=== PATIENT | female | born 2005 | race Caucasian/White ===

== ENCOUNTER 2023-05-09 22:34 | Emergency (ER) | payer MEDICAID, SELFPAY ==
[2023-05-09 22:45] VITALS: BP 138/73; PULSE 113; RESP 18; TEMP 37.1; O2SAT 97
[2023-05-09 22:53] VITALS: BP 138/73; PULSE 113; RESP 18; TEMP 37.1; O2SAT 97
--- NOTE | 2023-05-09 22:53 | ED.GENADUL_ITS ---
Discharge Plan Disposition Patient Disposition: Home Condition: Good Discharge Details Clinical Impression: Nausea & vomiting Primary Care Provider: Unknown,Unknown ED Provider: Merlin Crawford Home Meds and New Rx's Prescriptions: No Action bupropion HCl 150 mg tablet extended release 24 hr 150 mg PO DAILY folic acid 1 mg tablet 1 mg PO DAILY norgestimate-ethinyl estradiol [Estarylla] 0.25-35 mg-mcg tablet 1 tab PO DAILY Discharge Instructions Instructions: Acute Nausea and Vomiting (ED) Additional Instructions: At this time your work-up is returned reassuring. 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 This is a condition where your bilirubin gets elevated during times of mild sickness. You will be sent home with Abhishek. Please take this as needed for nausea. Please avoid any spicy foods, greasy foods or tomato-based products. Please stick with a bland diet for the next 2 days and stay well-hydrated. If you notice any worsening of your symptoms, or any new symptoms such as vomiting, diarrhea, fever, chills, shortness of breath, chest pain, numbness, weakness, or fainting , please return immediately to the emergency department for reevaluation. Please follow up with your primary care provider as soon as possible for reassessment and reevaluation. As always, it was a pleasure participating in your medical care today. Stand Alone Forms: Work Release Medical Decision Making 18-year-old female with no reported significant past medical history except for occasional ovarian cyst presents today for nausea and vomiting. Patient states that since this morning she has felt nauseous and had a few episodes of vomiting. It is been yellow stomach bile for all of the episodes. There is a very tiny tinge of blood in the first episode early this morning but none since then. She denies any recent diarrhea. She denies any chest pain or significant abdominal pain. She denies any alcohol intake. No other sick contacts at home. She does take control, bupropion, and Ashwaganda Gummies. She denies previous abdominal surgeries. No other complaints at this time. No other modifying factors. She did take an [id number] antinausea Dramamine with no improvement. Exam demonstrates well-appearing female, nontender abdomen. No evidence of an acute surgical abdomen. Differential is highest for gastroenteritis, pancr eatitis. Symptoms appear inconsistent with obstruction. We will rehydrate, monitor closely and reassess. 12:32 AM Laboratory work-up has returned relatively unremarkable, lipase normal, no white count bandemia or electrolyte abnormality. Renal function normal. Total bilirubin elevated at 3.1, conjugated bilirubin only 0.4 suggesting an elevated unconjugated. This correlates with mild Simmons Bears syndrome. She does not show evidence of polycythemia, sepsis, or Crigler-Santiago syndrome. No evidence of significant CBC abnormality, , or splenomegaly on exam. Bedside limited ultrasound was performed, gallbladder normal in size, and gallbladder wall normal in thickness. Suspect mild viral gastroenteritis. On reassessment patient feels well, abdomen is notably nonsurgical and unremarkable. Patient feels well and has tolerated p.o. Patient stable for discharge. Will give Zofran for home use. Discussed red flags for which to return. I have extensively reviewed the treatment plan and discharge instructions with the patient. I have addressed all patient concerns at this time. The patient was made aware of what symptoms to monitor for that would warrant a return to the emergency department. Discussed the plan with the patient, they demonstrate verbal understanding and agreement with our assessment and plan at this time. The documentation in this chart was dictated using [employer] dictation software. Please excuse any dictation errors. HPI General Date/Time Provider Initiated Documentation: 05/09/23 22:38 . HPI Narrative: 18-year-old female with no reported significant past medical history except for occasional ovarian cyst presents today for nausea and vomiting. Patient states that since this morning she has felt nauseous and had a few episodes of vomiting. It is been yellow stomach bile for all of the episodes. There is a very tiny tinge of blood in the first episode early this morning but none since then. She denies any recent diarrhea. She denies any chest pain or significant abdominal pain. She denies any alcohol intake. No other sick contacts at home. She does take control, bupropion, and Ashwaganda Gummies. She denies previous abdominal surgeries. No other complaints at this time. No other modifying factors. She did take an [id number] antinausea Dramamine with no improvement. Related Data Home Medications Medication Instructions Recorded Confirmed bupropion HCl 150 mg 24 hr tablet, 150 mg PO DAILY 05/09/23 05/09/23 extended release folic acid 1 mg tablet 1 mg PO DAILY 05/09/23 05/09/23 norgestimate 0.25 mg-ethinyl 1 tab PO DAILY 05/09/23 05/09/23 estradiol 35 mcg tablet (Estarylla) Allergies Allergy/AdvReac Type Severity Reaction Status Date / Time seafood Allergy Severe Anaphylaxis Uncoded 05/09/23 22:57 General Stated Complaint: Nausea/Vomit/Diar NATTY: 3 Review of Systems All systems reviewed & are unremarkable except as noted in HPI and below PFSH All Active Problems (Updated 05/10/23 @ 00:25 by Merlin Crawford DO) Nausea & vomiting (Acute) Social History Smoking/Tobacco Use Status: Current every day Tobacco Type: e-cigarettes Smoking risk assessment performed?: Yes Alcohol Intake: current Alcohol Intake frequency: holidays/special occasions only Alcohol type: hard liquor Drug use: Never Substance use type: does not use Housing: house Do you feel safe at home: Yes Do you feel safe in your relationship?: Yes Additional Social history: unable to assess privately Exam Narrative Exam Narrative: 1.Const: Well-nourished, Well-developed, appearing stated age 2.Eyes: PERRL, no conjunctival injection, and symmetrical lids. 3.ENT: Atraumatic external nose and ears. Dry MM. Neck: Symmetric, trachea midline, No thyromegaly. 4.CVS: +S1/S2, No murmurs or gallops. Peripheral pulses 2+ and equal in all extremities. Brisk capillary refill in all extremities. 5.RESP: Unlabored respiratory effort. Clear to auscultation bilaterally. No wheezes rales or rhonchi 6.GI: Soft, Nontender/Nondistended, No hepatosplenomegaly. No guarding or rebound. No pain at McBurney's point, negative Cárdenas sign 7.MSK: Normocephalic/Atraumatic, Extremities w/o deformity or ttp No cyanosis or clubbing, Normal movement of all extremities 8.Skin: Warm, Dry. No rashes or lesions. 9.Neuro: event marketing representative II-XII grossly intact. Sensation grossly intact, no focal neurologic deficits. 10.Psych: (AAO) x3. Appropriate mood and affect Course Vital Signs Vital signs: Vital Signs Temperature 37.1 C 05/09/23 22:45 Pulse 113 H 05/09/23 22:45 Respiratory Rate 18 05/09/23 22:45 Blood Pressure 138/73 05/09/23 22:45 Pulse Oximetry 97 05/09/23 22:45 Temperature 37.1 C 05/09/23 22:45 Temperature Source Temporal Artery Scan 05/09/23 22:45 Pulse 113 H 05/09/23 22:45 Respiratory Rate 18 05/09/23 22:45 Respiratory Effort Normal, Non-Labored 05/09/23 22:52 Blood Pressure 138/73 05/09/23 22:45 Blood Pressure Position Sitting 05/09/23 22:45 Pulse Oximetry 97 05/09/23 22:45 Oxygen Delivery Method Room Air 05/09/23 22:45 Oxygen Flow Rate 0 05/09/23 22:45 Pain Level 6 05/09/23 22:45 POCUS Exam (ED) Limited Gallbladder Exam DATE OF EXAM: 05/10/23 TIME OF EXAM: 00:09 PROVIDER THAT PERFORMED THE STUDY: Merlin Crawford IS THIS A REPEAT EXAM DURING THIS ENCOUNTER: No REASON FOR VISIT: Abdominal pain VISUALIZED STRUCTURES: Gallbladder and Gallbladder wall PERTINENT FINDINGS/IMPRESSION: Gallstones and Sludge in gallbladder; No Cholecystitis, No Pericholecystic fluid and No thickening of the gallbladder wall INCIDENTAL FINDINGS: Gallbladder diameter on short axis was less than 2 cm, and gallbladder wall was less than 2 mm in thickness Exam complete PAWSS Have you Been Recently Intoxicated or Drunk Within the Last 30 days?: No Have you Ever Experienced Previous Episodes of Alcohol Withdrawal?: No Have you ever Experienced Withdrawal Seizures?: No Have you ever Experienced Delirium Tremens(DT)s?: No Have you ever undergone Alcohol Rehabilitation Treatment (i.e, inpt ot outpatient treatment programs)?: No Have you ever Experienced Blackouts?: No Have you ever Combined Alcohol with other Downers within the last 90 days?: No Have you ever Combined Alcohol with any other Substance of Abuse during the last 90 days?: No Positive Blood Alcohol level on Presentation? [PCS.BAL]: No Evidence of Increased Autonomic Activity (i.e. HR>120, tremor, sweating, agitation, nausea)?: No Result: 0
[2023-05-09 23:16] LABS: Abs Immature Grans 0.03 10^3/uL (0.0-0.06); Absolute Basophil Count 0.02 10^3/uL (0.0-0.2); Absolute Eosinophil Count 0.01 10^3/uL (0.0-0.7); Absolute Lymphocyte Count 0.59 10^3/uL (1.2-3.4); Absolute Monocyte Count 0.56 10^3/uL (0.1-0.8); Absolute Neutrophil Count 9.25 10^3/uL (1.2-6.7); Basophils % 0.2; Eosinophils % 0.1; HCT 38.3 % (36.0-46.0); HGB 13.5 g/dL (11.2-15.7); Immature Grans % 0.3; Lymphocytes % 5.6; MCH 30.7 pg (27.0-33.0); MCHC 35.2 % (32.0-36.0); MCV 87 fL (80-95); MPV 10.1 fL (8.0-11.0); Monocytes % 5.4; Neutrophils % 88.4; Platelet Count 277 10^3/uL (130-400); RDW 12.3 % (11.7-14.6); RDW-SD 39.5 fL; WBC 10.46 10^3/uL (4.4-10.8)
[2023-05-09] MEDS: Normal Saline 1,000 ML 1000 ML IV (23:17)
[2023-05-09] MEDS: Ondansetron 4 MG/2 ML VIAL IVP (23:17)
[2023-05-09 23:18] LABS: Bilirubin Small (Negative); Blood Negative (Negative); Clarity Clear (Clear); Glucose Negative (Negative); Ketones 40 mg/dL (Negative); Leukocyte Esterase Negative (Negative); Nitrite Negative (Negative); Specific Gravity 1.025 (1.005-1.025)
[2023-05-09 23:27] LABS: Bacteria Moderate HPF (Negative); C & S Indicated? No/Sq. Contamination; Casts Negative LPF (Negative); Crystals Negative HPF (Negative); Epithelial Cells Moderate HPF (Negative); Mucus Heavy (Negative); RBC 0-2 HPF (0-2); WBC 0-2 HPF (0-5)
[2023-05-09 23:36] LABS: ALT 37 U/L (14-59); AST 22 U/L (15-37); Albumin 4.1 g/dL (3.4-5.0); Alkaline Phosphatase 64 U/L (46-116); BUN 9 mg/dL (7-18); Bilirubin, Total 3.1 mg/dL (0.2-1.0); CREATININE 0.9 mg/dL (0.55-1.02); Calcium 9.4 mg/dL (8.5-10.1); Chloride 105 mmol/L (98-107); Estimated GFR 93.86 (mL/min/1.73m2); Glucose 102 mg/dL (74-106); Lipase 19 U/L (16-77); Potassium 3.8 mmol/L (3.5-5.1); Sodium 139 mmol/L (136-145)
[2023-05-10 00:18] LABS: Bilirubin, Direct 0.4 mg/dL (0.0-0.2)
[2023-05-10 00:35] VITALS: BP 116/53; PULSE 82; RESP 16; O2SAT 98
== END 2023-05-10 00:36 | disposition home or self-care (01) ==
PROVIDERS: Emergency Provider Student in an Organized Health Care Education/Training Program
DX: R11.2 Nausea with vomiting, unspecified (principal); F17.290 Nicotine dependence, other tobacco product, uncomplicated
CPT/HCPCS: 36415; 76705; 80053; 81025; 83690; 96361; 96374; 99284; 81003; 81015; 82248; 85025; 99283; J2405

== ENCOUNTER 2023-06-18 21:18 | Emergency (ER) | payer MEDICAID, SELFPAY ==
--- NOTE | 2023-06-18 21:15 | RT.EKG_ITS ---
APPROVED REPORT Exam: Resting ECG Reason for Exam: chest pressure Patient Location: E HR:77 bpm ECG Measurements Heart Rate 77 AXIS SD 142 P 26 QRSd 93 QRS 64 QT 374 T 12 QTc 423 Conclusion Sinus rhythm...normal P axis, V-rate 60- 99 sinus rhythm, normal axis, normal intervals, non ischemic
[2023-06-18 21:27] VITALS: BP 149/94; PULSE 78; RESP 20; TEMP 36.5; O2SAT 99
--- NOTE | 2023-06-18 21:45 | DI.CT_ITS ---
Exam(s) CT ABDOMEN PELVIS W EXAM: CT ABDOMEN PELVIS W CLINICAL HISTORY: Abdominal pain, nausea. TECHNIQUE: Imaging Protocol: Axial computed tomography images with coronal and sagittal reformatted images were created and reviewed CONTRAST MATERIAL: Intravenous: Omnipaque-350 100cc Oral: None COMPARISON: No exams were available for comparison FINDINGS: VISUALIZED LUNG BASES: No nodules nor pleural effusions evident. ABDOMEN: There is no ascites. LIVER: There are no focal hepatic lesions evident. There is mild periportal edema in the liver. No dilated intrahepatic ducts. GALLBLADDER/BILIARY: Cholelithiasis noted. No gallbladder wall edema nor pericholecystic fluid. CBD is not dilated. PANCREAS: No evidence of pancreatic mass nor dilatation of the pancreatic duct. SPLEEN: Spleen is not enlarged. No obvious intrasplenic lesions. Splenic and portal veins are paten t. ADRENALS: There are no significant adrenal masses. KIDNEYS:No cysts evident. No solid renal masses. No calculi nor hydronephrosis.. ABDOMINAL AORTA: Abdominal aorta is not enlarged. LYMPH NODES:There is no retroperitoneal nor paraaortic adenopathy. ABDOMINAL WALL: No evidence of significant anterior abdominal wall nor inguinal hernia. GI: There is no evidence of bowel obstruction, free air, nor abscess. PELVIS: GI: Appendix is difficult to visualize as a distinct structure. There is, however, no evidence of ob vious appendicitis.No evidence of sigmoid diverticulitis. LYMPH NODES: There is no intrapelvic nor inguinal adenopathy. REPRODUCTIVE: Age-appropriate uterus and adnexal regions. URINARY BLADDER: No calculi nor obvious masses evident OSSEOUS: No fractures and no significant osseous lesions. IMPRESSION: 1. Appendix is not seen is a separate structure but there is no evidence of obvious acute appendiciti s. 2. No adnexal findings nor free fluid. 3. There is mild periportal edema in the liver noted. 4. No ascites. RADIATION DOSE DELIVERED: Total DLP DATA REPOSITORY: All CT scans at this facility are submitted to the National Radiology Data Registry (NRDR) Dose Index Registry (DIR) with the [employer] (ACR). RADIATION OPTIMIZATION: All CT scans at this facility use at least one of these dose optimization te chniques: automated exposure control; mA and/or kV adjustment per patient size (includes targeted exa ms where dose is matched to clinical indication); or iterative reconstruction.
--- NOTE | 2023-06-18 21:53 | ED.GENADUL_ITS ---
Discharge Plan Disposition Patient Disposition: Home Condition: Stable Discharge Details Clinical Impression: Gallstones Primary Care Provider: [facility] Provider: Emy Handy Home Meds and New Rx's Prescriptions: No Action bupropion HCl 150 mg tablet extended release 24 hr 150 mg PO DAILY folic acid 1 mg tablet 1 mg PO DAILY norgestimate-ethinyl estradiol [Estarylla] 0.25-35 mg-mcg tablet 1 tab PO DAILY Discharge Instructions Instructions: Biliary Colic (ED), Gallstones (ED) Additional Instructions: CT shows US gall stones. This may cause the symptoms you are having. Please stay away from anything fried fatty spicy or dairy. Please take the nausea medication as needed. Please take Tylenol or Ibuprofen with food every 4-6 hours as needed for pain and swelling. Follow up with primary care provider in 3-5 days. Return to ED sooner if any worsening fever, vomiting worsening pain not relieved by Tylenol or ibuprofen or concerns. Increase oral fluids. He may also follow-up with general surgery in the future to discuss whether this needs intervention. Referrals: Chika Thomas DO [OSTEOPATHIC DOCTOR] - 2 weeks Discharge Data Discharge Date/Time-TO BE ENTERED AT DEPARTURE: 06/18/23 23:49 Medical Decision Making 18-year-old female to the ER with chief complaint chest pressure which began while she was at a alliance party. She denies any drugs or alcohol, she does endorse so me marijuana exposure. She has had viral-like symptoms for the last week. She reports waxing and waning pain that comes and goes. Generalized abdominal tenderness with palpation. Worse in the right upper quadrant. Lungs are clear to auscultation bilaterally. No signs of trauma denies any dysuria or problems urinating. She is not on control pills. Last normal menstrual period was approximately 1 month ago denies any known . No vaginal bleeding or discharge. She is belching upon my examination. She reports that maybe it was gas. She reports that a similar episode approximately 1 week ago. Workup ordered including CBC CMP, lipase, urinalysis UDS urine and a liter of normal saline and Zofran 4 mg. Differential diagnosis includes but not limited to gastroenteritis, gas, food poisoning, COVID, cholecystitis, Please see official CT report shows gallstones, no free fluid, there is some portal venous dilatation which patient has received IV fluids. UDS negative, labs are noted below. Patient discharged with Zofran tablets to go, referral for general surgery and strict return instructions if continued pain. This text was generated using [employer] dictation system, please disregard any oddities of phrase or misspellings. Patient reevaluation she reports that she feels much better she has remained hemodynamically stable throughout the remainder of her stay Lab Data Lab results reviewed: Yes I reviewed the patient's lab results. Labs: Laboratory Tests Range/Units 06/18/23 22:16 WBC (4.4-10.8) 10^3/uL 9.92 RBC (3.93-5.22) 10^6/uL 5.03 Hgb (11.2-15.7) g/dL 15.7 Hct (36.0-46.0) % 45.0 MCV (80-95) fL 90 MCH (27.0-33.0) pg 31.2 MCHC (32.0-36.0) % 34.9 RDW (11.7-14.6) % 12.1 Plt Count (130-400) 10^3/uL 257 MPV (8.0-11.0) fL 10.3 Immature Gran % 0.2 Neutrophils % 73.5 Lymphocytes % 17.4 Monocytes % 6.4 Eosinophils % 2.2 Basophils % 0.3 Nucleated RBC % (0.0-0.3) % 0.0 Absolute Neutrophils (1.2-6.7) 10^3/uL 7.29 H Absolute Lymphocytes (1.2-3.4) 10^3/uL 1.73 Absolute Monocytes (0.1-0.8) 10^3/uL 0.63 Absolute Eosinophils (0.0-0.7) 10^3/uL 0.22 Absolute Basophils (0.0-0.2) 10^3/uL 0.03 Sodium (136-145) mmol/L 140 Potassium (3.5-5.1) mmol/L 3.7 Chloride (98-107) mmol/L 103 Carbon Dioxide (21.0-32.0) mmol/L 26.6 Anion Gap (3-11) mmol/L 10.4 BUN (7-18) mg/dL 11 Creatinine (0.55-1.02) mg/dL 0.9 Est GFR (CKD-EPI 2020) (mL/min/1.73m2) 93.86 Glucose (74-106) mg/dL 97 Calcium (8.5-10.1) mg/dL 9.3 Total Bilirubin (0.2-1.0) mg/dL 1.3 H AST (15-37) U/L 57 H ALT (14-59) U/L 40 Alkaline Phosphatase (46-116) U/L 71 Total Protein (6.4-8.2) g/dL 8.6 H Albumin (3.4-5.0) g/dL 4.1 Lipase (16-77) U/L 44 Urine Color (Yellow) Yellow Urine Clarity (Clear) Clear Urine pH (5-8) 6.5 Ur Specific [place] (1.005-1.025) >= 1.030 H Urine Protein (Negative) mg/dL Negative Urine Ketones (Negative) mg/dL 15 H Urine Blood (Negative) Negative Urine Nitrite (Negative) Negative Urine Bilirubin (Negative) Negative Urine Urobilinogen (Up to 0.2) mg/dL 0.2 Ur Leukocyte Esterase (Negative) Negative Urine Glucose (Negative) mg/dL Negative Urine Opiates Screen (Negative) Negative Urine Methadone Screen (Negative) Negative Ur Barbiturates Screen (Negative) Negative Ur Tricyclics Screen (Negative) Negative Ur Amphetamines Screen (Negative) Negative U Benzodiazepines Scrn (Negative) Negative Urine Cocaine Screen (Negative) Negative Ur THC Screen (Negative) Negative COVID-19 Source Nasopharynx SARS-CoV-2 (PCR) (Negative) Negative Influenza Type A (PCR) (Negative) Negative Influenza Type B (PCR) (Negative) Negative RSV (PCR) (Negative) Negative HPI General Mode of arrival: ambulatory . Date/Time Provider Initiated Documentation: 06/18/23 21:28 . Limitations to Documentation: no limitations . Information obtained by: patient, RN notes reviewed and old records reviewed . HPI Narrative: 18-year-old female to the ER with chief complaint chest pressure which began while she was at a alliance party. She denies any drugs or alcohol, she does endorse some marijuana exposure. She has had viral-like symptoms for the last week. She reports waxing and waning pain that comes and goes. Generalized abdominal tenderness with palpation. Worse in the right upper quadrant. Lungs are clear to auscultation bilaterally. No signs of trauma denies any dysuria or problems urinating. She is not on control pills. Last normal menstrual period was approximately 1 month ago denies any known . No vaginal bleeding or discharge. She is belching upon my examination. She reports that maybe it was gas. She reports that a similar episode approximately 1 week ago. Related Data Home Medications Medication Instructions Recorded Confirmed bupropion HCl 150 mg 24 hr tablet, 150 mg PO DAILY 05/09/23 06/18/23 extended release folic acid 1 mg tablet 1 mg PO DAILY 05/09/23 06/18/23 norgestimate 0.25 mg-ethinyl 1 tab PO DAILY 05/09/23 06/18/23 estradiol 35 mcg tablet (Estarylla) Allergies Allergy/AdvReac Type Severity Reaction Status Date / Time seafood Allergy Severe Anaphylaxis Uncoded 06/18/23 21:26 General Stated Complaint: GenMedical NATTY: 3 Review of Systems All systems reviewed & are unremarkable except as noted in HPI and below Constitutional Constitutional: Reports as per HPI, Denies fever(s) and Denies headache(s) ENT Ears, Nose, Mouth, and Throat: Denies headache(s) Gastrointestinal Gastrointestinal: Reports abdominal pain, Reports belching, Denies hematochezia, Denies coffee ground emesis, Denies diarrhea, Reports nausea and Denies vomiting Genitourinary Genitourinary: Denies dysuria Neurologic Neurologic: Denies headache(s) PFSH All Active Problems (Updated 06/18/23 @ 23:39 by Emy Handy NP) Gallstones (Acute) Social History Smoking/Tobacco Use Status: Current every day Tobacco Type: e-cigarettes Smoking risk assessment performed?: Yes Alcohol Intake: current Alcohol Intake frequency: holidays/special occasions only Alcohol type: hard liquor Drug use: Never Substance use type: does not use Housing: house Do you feel safe at home: Yes Do you feel safe in your relationship?: Yes Additional Social history: unable to assess privately Exam Narrative Exam Narrative: Constitutional: Alert and oriented x3. Appears stated age. Normal body habitus. Head: Normocephalic, no trauma. Eyes: Pupils PERRL, Red reflex noted, EOM's intact. Eyelids symmetrical without lesions, discharge, or swelling. ENT: Bilateral TM's WNL, External ear normal to inspection, no mastoid TTP, swelling, or erythema, Nasal turbinates WNL, no nasal discharge. Normal dentition, Posterior pharynx WNL, no exudate. Chest: RRR, Normal S1, S2, distal pulses intact. Resp: Lungs clear to auscultation bilaterally, no wheezes, rales, or rhonchi. Abdomen: Soft, non-distended, Normoactive bowel sounds all 4 quads. Tenderness all 4 quadrants, worse right upper quadrant. no masses guarding Musculoskeletal: Normal gait, 5/5 strength to all four extremities. Skin: No suspicious rashes or lesions. Capillary refill less than 2 sec. Neurologic: Cranial nerves II-XII intact. Alert and oriented x 3. Motor: No deficits noted. Sensory: Intact bilaterally all 4 extremities. Hematologic/Lymphatic: No ecchymosis, no lymphadenopathy. Course Vital Signs Vital signs: Vital Signs Temperature 36.5 C 06/18/23 21: Pulse 78 06/18/23 21:27 Respiratory Rate 20 06/18/23 21:27 Blood Pressure 149/94 H 06/18/23 21:27 Pulse Oximetry 99 06/18/23 21:27 Temperature 36.5 C 06/18/23 21:27 Temperature Source Oral 06/18/23 21:27 Pulse 78 06/18/23 21:27 Respiratory Rate 20 06/18/23 21:27 Respiratory Effort Normal 06/18/23 21:38 Respiratory Depth Normal 06/18/23 21:38 Respiratory Pattern Normal 06/18/23 21:38 Blood Pressure 149/94 H 06/18/23 21:27 Blood Pressure Position Sitting 06/18/23 21:27 Pulse Oximetry 99 06/18/23 21:27 Oxygen Delivery Method Room Air 06/18/23 21:27 Oxygen Flow Rate 0 06/18/23 21:27 Pain Level 10 06/18/23 21:27
[2023-06-18] MEDS: Normal Saline 1,000 ML 1000 ML IV (22:20)
[2023-06-18] MEDS: Ondansetron 4 MG/2 ML VIAL IVP (22:21)
[2023-06-18 22:23] LABS: Abs Immature Grans 0.02 10^3/uL (0.0-0.06); Absolute Basophil Count 0.03 10^3/uL (0.0-0.2); Absolute Eosinophil Count 0.22 10^3/uL (0.0-0.7); Absolute Lymphocyte Count 1.73 10^3/uL (1.2-3.4); Absolute Monocyte Count 0.63 10^3/uL (0.1-0.8); Absolute Neutrophil Count 7.29 10^3/uL (1.2-6.7); Basophils % 0.3; Eosinophils % 2.2; HGB 15.7 g/dL (11.2-15.7); Immature Grans % 0.2; Lymphocytes % 17.4; MCH 31.2 pg (27.0-33.0); MCHC 34.9 % (32.0-36.0); MCV 90 fL (80-95); MPV 10.3 fL (8.0-11.0); Monocytes % 6.4; Neutrophils % 73.5; Platelet Count 257 10^3/uL (130-400); RBC 5.03 10^6/uL (3.93-5.22); RDW 12.1 % (11.7-14.6); RDW-SD 40.5 fL; WBC 9.92 10^3/uL (4.4-10.8)
[2023-06-18 22:27] LABS: Bilirubin Negative (Negative); Blood Negative (Negative); Clarity Clear (Clear); Glucose Negative (Negative); Ketones 15 mg/dL (Negative); Leukocyte Esterase Negative (Negative); Nitrite Negative (Negative); Specific Gravity >= 1.030 (1.005-1.025); Urobilinogen 0.2 mg/dL (Up to 0.2); pH 6.5 (5-8)
[2023-06-18] MEDS: Omnipaque 350 MG/ML 100 ML BTL IJ (22:31)
[2023-06-18 22:44] LABS: ALT 40 U/L (14-59); AST 57 U/L (15-37); Albumin 4.1 g/dL (3.4-5.0); Alkaline Phosphatase 71 U/L (46-116); Anion Gap 10.4 mmol/L (3-11); BUN 11 mg/dL (7-18); Bilirubin, Total 1.3 mg/dL (0.2-1.0); CO2 26.6 mmol/L (21.0-32.0); CREATININE 0.9 mg/dL (0.55-1.02); Calcium 9.3 mg/dL (8.5-10.1); Chloride 103 mmol/L (98-107); Estimated GFR 93.86 (mL/min/1.73m2); Glucose 97 mg/dL (74-106); Lipase 44 U/L (16-77); Potassium 3.7 mmol/L (3.5-5.1); Sodium 140 mmol/L (136-145); Total Protein 8.6 g/dL (6.4-8.2)
[2023-06-18 22:45] LABS: *AMPHETAMINES SCREEN URINE Negative (Negative); *BARBITURATES SCREEN URINE Negative (Negative); *BENZODIAZEPINES SCREEN URINE Negative (Negative); Cannabinoids THC Negative (Negative); Cocaine Screen,Urine Negative (Negative); METHADONE URINE SCREEN Negative (Negative); OPIATES URINE SCREEN Negative (Negative)
[2023-06-18] MEDS: Normal Saline - Diluent 50 ML VIAL IJ (22:46)
[2023-06-18] MEDS: Normal Saline Flush 10 ML SYR IVP (22:47)
[2023-06-18 22:49] LABS: Tricyclic Antidepressants Negative (Negative)
[2023-06-18 23:00] LABS: COVID-19 PCR Negative (Negative); Influenza A PCR Negative (Negative); Influenza B PCR Negative (Negative); RSV PCR Negative (Negative)
[2023-06-18 23:01] LABS: Source Nasopharynx
--- NOTE | 2023-06-18 23:22 | DI.VRAD_ITS ---
PROCEDURE INFORMATION: Exam: CT Abdomen And Pelvis With Contrast Exam date and time: 06/18/2023 10:33 PM Age: 18 years old Clinical indication: Abdominal pain; Localized; Left upper quadrant (luq); Patient HX: Abd pain, nausea TECHNIQUE: Imaging protocol: Computed tomography of the abdomen and pelvis with contrast. Radiation optimization: All CT scans at this facility use at least one of these dose optimization techniques: automated exposure control; mA and/or kV adjustment per patient size (includes targeted exams where dose is matched to clinical indication); or iterative reconstruction. Contrast material: OMNIPAQUE 350; Contrast volume: 100 ml; Contrast route: INTRAVENOUS (IV); COMPARISON: No relevant prior studies available. FINDINGS: Liver: See Vasculature finding. Gallbladder and bile ducts: Cholelithiasis. No cholecystitis or biliary ductal dilatation. Pancreas: Unremarkable. Spleen: Normal. Adrenal glands: Normal. No mass. Kidneys and ureters: Normal. No hydronephrosis. Stomach and bowel: Unremarkable. No bowel wall thickening or intestinal obstruction. Appendix: Normal appendix. Intraperitoneal space: Unremarkable. No pneumoperitoneum. No abscess. Vasculature: There is mild periportal edema and IVC distention which is likely related to IV fluid administration or pre hydration for CT scan though a can also be a nonspecific indicator of hepatic dysfunction/hepatitis. Lymph nodes: Unremarkable. Urinary bladder: Unremarkable as visualized. Reproductive: Unremarkable as visualized. Bones/joints: Unremarkable. No acute fracture. Soft tissues: Unremarkable. IMPRESSION: There is mild periportal edema and IVC distention which is likely related to IV fluid administration or pre hydration for CT scan though a can also be a nonspecific indicator of hepatic dysfunction/hepatitis. Dictated and Authenticated by: Farshad Servin MD. Ordering:ROOSEVELT Quevedo MD
[2023-06-18] MEDS: Ondansetron O.D.T. 4 MG TABEF, 3 TABS/BTL PO (23:47)
[2023-06-18 23:48] VITALS: BP 140/54; PULSE 83; RESP 16; O2SAT 100
--- NOTE | 2023-06-19 07:49 | NUR.NOTE ---
Accessed chart to determine orders for EKG and to determine whether or not one needs to be cancelled. Nursing Note:
== END 2023-06-18 23:49 | disposition home or self-care (01) ==
PROVIDERS: Emergency Provider Registered Nurse Emergency
DX: K80.20 Calculus of gallbladder without cholecystitis without obstruction (principal); R10.11 Right upper quadrant pain
CPT/HCPCS: 80053; 80307; 83690; 87637; 93005; 74177; 81003; 85025; 93010; J2405; J3490

== ENCOUNTER 2023-12-19 11:17 | Emergency (ER) | payer SELFPAY ==
[2023-12-19 11:21] VITALS: BP 117/71; PULSE 74; RESP 16; TEMP 36.9; O2SAT 100
--- NOTE | 2023-12-19 11:27 | W.ED.GENAD ---
Discharge Plan Disposition Patient Disposition: Home Condition: Stable Discharge Details Clinical Impression: Fungal infection of skin Primary Care Provider: Unknown,Unknown ED Provider: Merlin Dominguez Home Meds and New Rx's Prescriptions: New butenafine 1 % cream 1 applic topical BID 28 Days Qty: 30 0RF Continued bupropion HCl 150 mg tablet extended release 24 hr 150 mg PO DAILY folic acid 1 mg tablet 1 mg PO DAILY norgestimate-ethinyl estradiol [Estarylla] 0.25-35 mg-mcg tablet 1 tab PO DAILY Discharge Instructions Instructions: Butenafine, Fungal Skin Rash Additional Instructions: You were seen in the emergency department for your fungal skin infection of your left shoulder blade consistent with ringworm. You have been applying Benadryl cream to this, this is not going to treat a fungal infection. I have sent prescription butenafine to [facility] in [place]. Please apply this twice per day as directed. If this is not curative likely fungal skin infection you need to follow-up with dermatology for nonhealing skin ulceration. Please return to the emergency department for any spread of the infection, spreading redness out from the area of crusting, drainage of pus from the area, fever. HPI General Date/Time Provider Initiated Documentation: 12/19/23 11:26. HPI Narrative: 18 year-old female presents to ED today by POV/ambulating with a chief complaint of rash on L shoulderblade with onset for one week- similar to a prior episode of ringworm years ago. Quality described as scaly, itchy rash, no radiation to fever, drainage of pus from the area, spread urticaria. Severity is described as mild. Palliating factors include nothing specific. Provoking factors include nothing specific. Events leading up to the incident/Associated Symptoms: patient has put Benadryl on the rash, knowing that it won't treat fungal infection, states she cannot afford OTC antifungal. Patient not anticoagulated. Related Data Home Medications Medication Instructions Recorded Confirmed bupropion HCl 150 mg 24 hr tablet, 150 mg PO DAILY 05/09/23 12/19/23 extended release folic acid 1 mg tablet 1 mg PO DAILY 05/09/23 12/19/23 norgestimate 0.25 mg-ethinyl 1 tab PO DAILY 05/09/23 12/19/23 estradiol 35 mcg tablet (Estarylla) butenafine 1 % topical cream 1 applic topical BID ringworm 4 12/19/23 weeks #30 grams Previous Rx's Medication Instructions Recorded butenafine 1 % topical cream 1 applic topical BID ringworm 4 12/19/23 weeks #30 grams Allergies Allergy/AdvReac Type Severity Reaction Status Date / Time seafood Allergy Severe Anaphylaxis Uncoded 12/19/23 11:49 General Stated Complaint: RashLesion NATTY: 5 Review of Systems All systems reviewed & are unremarkable except as noted in HPI and below Exam Narrative Exam Narrative: GENERAL APPEARANCE: Well-nourished, non-toxic, awake and alert, atraumatic, no acute distress. SKIN: Warm, pink, dry, intact, macular scaly rash about 1.5 cm at the left trapezius area with a red ring around the outside, no white plaques, no drainage of pus, no fluctuance or spivey induration or spreading erythema consistent with ringworm HEAD: Normocephalic, atraumatic, normal hair distribution for gender/age. EYES: Normal conjunctiva, no exudates on lids/lashes. ENT: Nares patent, no circumoral cyanosis, no facial swelling NECK: Supple, trachea midline, painless cervical ROM. LUNGS/CHEST: Non-labored respirations, normal A/P diameter, symmetrical expansion, no chest wall deformity HEART (CV/PV): No peripheral edema, no JVD. ABDOMEN: Soft, non-distended, no guarding. MSK: Normal ROM, no swelling/deformity to bilateral UEs or LEs, moving all extremities without weakness, no cyanosis, spine midline without tenderness, normal curvature. NEURO: Mental Status AAOx4 - alert to person, place, time, events No facial droop, no forehead involvement. Motor: No focal weakness - strength 5/5 in bilateral UEs and LEs, proximal and distal, symmetric. Sensory: sensation intact to light touch globally. Gait normal: patient ambulated without ataxia into ED room. PSYCH: euthymic, cooperative, pleasant, appropriate speech Course Vital Signs Vital signs: Vital Signs Temperature 36.9 C 12/19/23 11:21 Pulse 74 12/19/23 11:21 Respiratory Rate 16 12/19/23 11:21 Blood Pressure 117/71 12/19/23 11:21 Pulse Oximetry 100 12/19/23 11:21 Temperature 36.9 C 12/19/23 11:21 Temperature Source Tympanic 12/19/23 11:21 Pulse 74 12/19/23 11:21 Respiratory Rate 16 12/19/23 11:21 Blood Pressure 117/71 12/19/23 11:21 Blood Pressure Position Sitting 12/19/23 11:21 Pulse Oximetry 100 12/19/23 11:21 Oxygen Delivery Method Room Air 12/19/23 11:21 Oxygen Flow Rate 0 12/19/23 11:21 Pain Level 0 12/19/23 11:21 Medical Decision Making This dictation utilizes [id number] dictation software and may contain unedited grammatical errors. 18 year-old female presents to ED today by POV/ambulating with a chief complaint of rash on L shoulderblade with onset for one week- similar to a prior episode of ringworm years ago. Quality described as scaly, itchy rash, no radiation to fever, drainage of pus from the area, spread urticaria. Severity is described as mild. Palliating factors include nothing specific. Provoking factors include nothing specific. Events leading up to the incident/Associated Symptoms: patient has put Benadryl on the rash, knowing that it won't treat fungal infection, states she cannot afford OTC antifungal. Patients' medical history: noncontributory. Family and social history: noncontributory. Pertinent exam findings / vital signs include SKIN: Warm, pink, dry, intact, macular scaly rash about 1.5 cm at the left trapezius area with a red ring around the outside, no white plaques, no drainage of pus, no fluctuance or spivey induration or spreading erythema consistent with ringworm. Differential / pathologies of concern include ringworm, psoriasis, atypical squamous cell carcinoma. Diagnostic studies of: -none. Interventions of: -Rx for Butenafine for antifungal treatment. ED Course/Assessment/Plan: Patient presents with a 1.5 cm rash macular to the left trapezius area of the shoulder blade consistent with ringworm, not consistent with white plaques of psoriasis, counseled on treatment with antifungal cream, patient and I discussed the need for urgent care visits or primary care visits for complaints such as this, states she cannot afford [id number] medications so I did provide prescription. Recommend she see a heel nail rasper for failure to improve for further evaluation and possible biopsy, strict return criteria for spivey increase in swelling, pain, fever, redness spreading up from the area, drainage of pus from the area. Findings not consistent with abscess, sepsis, carcinoma. Disposition of fungal infection of skin. Patient verbalized understanding of the plan and return to ED criteria and engaged in shared decision making. Medical Records Medical records reviewed: Yes I reviewed the patient's medical records. Quality:[facility] Health Related Social Needs: No Data to Display PFSH All Active Problems (Updated 12/19/23 @ 11:52 by MARCELA Dey) Fungal infection of skin (Acute) Social History Smoking/Tobacco Use Status: Current every day Tobacco Type: e-cigarettes Smoking risk assessment performed?: Yes Alcohol Intake: current Alcohol Intake frequency: holidays/special occasions only Alcohol type: hard liquor Drug use: Never Substance use type: does not use Housing: house Do you feel safe at home: Yes Do you feel safe in your relationship?: Yes Additional Social history: unable to assess privately
== END 2023-12-19 12:08 | disposition home or self-care (01) ==
PROVIDERS: Emergency Provider Physician Assistant
DX: B36.9 Superficial mycosis, unspecified (principal)
CPT/HCPCS: 99283

== ENCOUNTER 2024-03-22 00:10 | Emergency (ER) | payer SELFPAY ==
[2024-03-22] VITALS (10 sets, daily range): BP systolic 119–148; BP diastolic 55–90; PULSE 60–106; RESP 11–21; TEMP 36.4–36.5; O2SAT 98
--- NOTE | 2024-03-22 00:11 | ED.GENADUL_ITS ---
Discharge Plan Disposition Patient Disposition: Home Condition: Improving Discharge Details Clinical Impression: Nausea & vomiting, Abdominal pain, Hypokalemia Primary Care Provider: Unknown,Unknown ED Provider: Maikel Emery Meds and New Rx's Prescriptions: New Ondansetron Odt, 3 Tabs/Btl [Zofran Odt, 3 Tabs/Btl] 4 mg PO TID PRN (Reason: Nausea And Vomiting) Qty: 4 0RF Continued bupropion HCl 150 mg tablet extended release 24 hr 150 mg PO DAILY folic acid 1 mg tablet 1 mg PO DAILY norgestimate-ethinyl estradiol [Estarylla] 0.25-35 mg-mcg tablet 1 tab PO DAILY Discharge Instructions Instructions: Abdominal Pain, Adult ED, Nausea and Vomiting, Adult ED Additional Instructions: You were seen in the ED for abdominal pain with nausea and vomiting. Your potassium was found to be low and was repleted. Would maintain a clear liquid diet over the next 12 to 24 hours and advance slowly. I have supplied you with ondansetron for recurrent nausea vomiting. Follow-up with primary care this coming week. Return to ED for any new or worsening abdominal pain, persistent vomiting, bloody diarrhea, fever, other concerns. Discharge Data Discharge Date/Time-TO BE ENTERED AT DEPARTURE: 03/22/24 03:05 HPI General Mode of arrival: ambulatory . Date/Time Provider Initiated Documentation: 03/22/24 00:11 . Limitations to Documentation: no limitations . Information obtained by: patient, RN notes reviewed and old records reviewed . HPI Narrative: Patient presents to ED complaint of nausea/vomiting and upper abdominal pain. Patient reports having a single episode of emesis this morning. She felt fine the rest of the day. She had Ramen noodles tonight. Developed nausea and vomiting couple hours later. Subsequently developed pain across the entire upper abdomen and through to the back. She has had no diarrhea. No chest pain or shortness of breath. Reports pain is sharp and cramping, intermittent. No significant medical or surgical history in the past. No previous abdominal surgeries. Related Data Home Medications ?Medication ?Instructions ?Recorded ?Confirmed bupropion HCl 150 mg 24 hr tablet, 150 mg PO DAILY 05/09/23 03/22/24 extended release folic acid 1 mg tablet 1 mg PO DAILY 05/09/23 03/22/24 norgestimate 0.25 mg-ethinyl 1 tab PO DAILY 05/09/23 03/22/24 estradiol 35 mcg tablet (Estarylla) Ondansetron ODT, 3 tabs/btl 4 mg PO TID PRN Nausea And 03/22/24 [Zofran ODT, 3 tabs/btl] Vomiting #4 tab-caps Previous Rx's ?Medication ?Instructions ?Recorded Ondansetron ODT, 3 tabs/btl 4 mg PO TID PRN Nausea And 03/22/24 [Zofran ODT, 3 tabs/btl] Vomiting #4 tab-caps Allergies Allergy/AdvReac Type Severity Reaction Status Date / Time seafood Allergy Severe Anaphylaxis Uncoded 03/22/24 00:18 General NATTY: 5 Review of Systems Narrative: Per HPI Exam Narrative Exam Narrative: Const: WDWN female in NAD. VS per triage. HEENT: NC/AT. Normal facial exam. Neck: Supple. Trachea midline. Lungs: Normal respiratory effort. Lungs are clear. Cor: RRR without murmur. Good radial pulses. GI: Soft/ND. Diffuse tenderness with voluntary guarding and pulling away. Neuro: A+O x 3. Normal speech, mentation, gait. Cranial nerves II - XII grossly intact. No gross motor or sensory deficit. Ext: No C/C/E. Medical Decision Making Patient presenting to ED with onset of nausea vomiting and subsequent upper abdominal pain in the last few hours. Her abdomen is soft and nondistended but she complains of diffuse abdominal tenderness with voluntary guarding and pulling away. She does have a CAT scan from last year which did show gallstones. However, her exam is not compatible with acute cholecystitis at this point and I do not suspect hollow viscus perforation or peritonitis despite her exam. Consider pancreatitis, gastritis, gastroenteritis given description of sharp crampy pain throughout. Will place IV and give fluids, prochlorperazine, ketorolac. Will obtain abdominal labs and reevaluate. Patient CBC is normal. Chemistry significant for potassium of 2.6 with an anion gap of 14.2. Kidney function is normal. Magnesium only a little low at 1.7. Her total bilirubin is elevated at 2.16 but has been elevated on previous visits. ALT is normal. AST slightly up at 61. Lipase is normal. test negative. Patient much improved after fluids, ketorolac and prochlorperazine. She has had no further vomiting. 20 mEq of potassium IV were given. 40 mEq of liquid oral potassium also given which she tolerated. Has some continued mild diffuse abdominal pain that she complains of but her abdominal exam is benign with no focal tenderness. Plan discharge home on clear liquid diet for the next 12 to 24 hours. Given ondansetron for use over the weekend if necessary. Follow-up with PCP this week. Return precautions provided. Lab Data Lab results reviewed: Yes I reviewed the patient's lab results. Lab results narrative: see [facility] All Active Problems (Updated 03/22/24 @ 02:52 by Maikel Emery MD) Hypokalemia (Acute) Abdominal pain (Acute) Nausea & vomiting (Acute) Medical History No significant past medical history Surgical History No significant past surgical history Social History Smoking/Tobacco Use Status: Current every day Tobacco Type: e-cigarettes Smoking risk assessment performed?: Yes Alcohol Intake: current Alcohol Intake frequency: holidays/special occasions only Alcohol type: hard liquor Drug use: Never Substance use type: does not use Housing: house Do you feel safe at home: Yes Do you feel safe in your relationship?: Yes Additional Social history: unable to assess privately
[2024-03-22] MEDS: Lactated Ringers 1,000 ML 1000 ML IV ×2 (00:32→01:06)
[2024-03-22] MEDS: Ketorolac 30 MG/ML VIAL IVP (00:32)
[2024-03-22] MEDS: Prochlorperazine 10 MG/2 ML VIAL IVP (00:32)
[2024-03-22 00:37] LABS: Abs Immature Grans 0.02 10^3/uL (0.0-0.06); Absolute Basophil Count 0.02 10^3/uL (0.0-0.2); Absolute Eosinophil Count 0.02 10^3/uL (0.0-0.7); Absolute Monocyte Count 0.64 10^3/uL (0.1-0.8); Absolute Neutrophil Count 4.46 10^3/uL (1.2-6.7); Basophils % 0.3 %; Eosinophils % 0.3 %; HGB 13.6 g/dL (11.2-15.7); Immature Grans % 0.3 %; Lymphocytes % 34.4 %; MCH 31.6 pg (27.0-33.0); MCHC 34.9 % (32.0-36.0); MCV 91 fL (80-95); MPV 10.3 fL (8.0-11.0); Monocytes % 8.1 %; Neutrophils % 56.6 %; Platelet Count 275 10^3/uL (130-400); RDW 12.1 % (11.7-14.6); RDW-SD 40.3 fL; WBC 7.86 10^3/uL (4.4-10.8)
[2024-03-22 00:53] LABS: HCG Qual (Serum) Negative
[2024-03-22 00:56] LABS: ALT 37 U/L (14-59); AST 61 U/L (15-37); Albumin 3.8 g/dL (3.4-5.0); Alkaline Phosphatase 72 U/L (46-116); Anion Gap 14.2 mmol/L (3-11); BUN 12 mg/dL (7-18); Bilirubin, Total 2.16 mg/dL (0.2-1.0); CO2 24.8 mmol/L (21.0-32.0); Calcium 9.4 mg/dL (8.5-10.1); Chloride 101 mmol/L (98-107); Glucose 117 mg/dL (74-106); Lipase 36 U/L (16-77); Magnesium 1.7 mg/dL (1.8-2.4); Sodium 140 mmol/L (136-145); Total Protein 7.4 g/dL (6.4-8.2)
[2024-03-22 00:57] LABS: Potassium 2.6 mmol/L (3.5-5.1)
[2024-03-22] MEDS: POTASSIUM CHLORIDE 10 MEQ/100 ML BAG 100 MEQ IVINF ×2 (01:02→01:55)
--- NOTE | 2024-03-22 01:08 | NUR.NOTE ---
Nursing Note: RN attempted to place cardiac lead on patient and patient growled at RN. RN made it abundantly clear that pt presented to the emergency room for treatment and monitoring her heart because she is on potassium is per hospital policy. RN then asked pt to lay in a position where putting leads on was possible. RN placed leads on chest and pt cardiac monitoring was implemented.
[2024-03-22] MEDS: Potassium Chloride Liquid 20 MEQ PKT 40 MEQ PO (02:50)
[2024-03-22] MEDS: Ondansetron O.D.T. 4 MG TABEF, 3 TABS/BTL PO (02:51)
== END 2024-03-22 03:05 | disposition home or self-care (01) ==
PROVIDERS: Emergency Provider Emergency Medicine
DX: R11.2 Nausea with vomiting, unspecified (principal); R10.10 Upper abdominal pain, unspecified; E87.6 Hypokalemia
CPT/HCPCS: 80053; 83690; 96361; 96374; 96375; 99284; 83735; 84703; 85025; 99283; J0780; J1885; J3480